=== PATIENT | female | born 1995 | race Caucasian/White ===

== ENCOUNTER 2018-12-14 11:45 | Inpatient (IN) | payer OTHER ==
[~2018-12-14] VITALS: Ht 152.4 cm; Wt 59.1 kg
[~2018-12-14 11:45] MED LIST: AMOX500C2 PO; IBUP-1542 PO
[2018-12-14] MEDS ORDERED: ONDANSETRON 4 MG INJ IV STA ×2 (13:04→17:43)
[2018-12-14] MEDS ORDERED: morphine 4 MG/ML VIAL IV STA ×3 (13:04→17:43)
--- NOTE | 2018-12-14 13:18 | ERD ---
ER Documentation Chief Complaint Chief Complaint Complains of abdominal pain sent from MD guido appendecitis HPI 23-year-old female with alcohol use presents to the ED complaining of right sided abdominal pain. Patient states that the abdominal pain began periumbilical yesterday, however, it was less intense and now remains in the right side of her abdomen Patient states that today her pain is 10 out of 10 in severity and nonradiating. She describes the pain as constant and sharp. She has not measured any fevers, however, she states that she has had some chills, night sweats, nausea, and several episodes of nonbilious nonbloody vomiting. Patient denies any dysuria, hematuria, pelvic pain, or flank pain. Patient states she is not currently taking any medications. She has no allergies to medication. She denies tobacco use any tobacco use or drug use. ROS All systems reviewed and are negative except as per history of present illness. Medications Home Meds Active Scripts Amoxicillin* (Amoxicillin*) 500 Mg Cap, 500 MG PO TID for 10 Days, CAP Prov:JEFF HEARD MD 05/05/15 Ibuprofen* (Motrin*) 600 Mg Tab, 600 MG PO Q6, #14 TAB Prov:JEFF HEARD MD 05/05/15 Allergies Allergies: Coded Allergies: No Known Allergy (Unverified , 12/14/18) PMhx/Soc History of Surgery: No Anesthesia Reaction: No Hx Neurological Disorder: No Hx Respiratory Disorders: No Hx Cardiac Disorders: No Hx Psychiatric Problems: No Hx Miscellaneous Medical Probl: No Hx Alcohol Use: Yes (DAILY) Hx Substance Use: Yes ("i smoke meth every day") Hx Tobacco Use: Yes (") Smoking Status: Never smoker FmHx Family History: No diabetes, No coronary disease Physical Exam Vitals Vital Signs Date Temp Pulse Resp B/P (MAP) Pulse Ox O2 O2 Flow FiO2 Time Delivery Rate 12/14/18 99.0 100 20 139/94 99 11:53 (109) Physical Exam Const: [id number], well-nourished. In no acute distress. Head: Atraumatic, normocephalic Eyes: Normal Conjunctiva without injection. No purulent discharge. ENT: Normal external ear, nose. Moist oropharynx without tonsillar exudates. Non-erythematous pharynx. Uvula midline. No drooling. No trismus. Neck: No cervical midline tenderness. Full range of motion. No meningismus. No cervical lymphadenopathy. No JVD. Resp: Clear to auscultation bilaterally. No wheezing, rhonchi, rales, or crackles. No accessory muscle use. No retractions. Cardio: Regular rate and rhythm. No murmurs, rubs or gallops. Abd: Soft, right upper and lower quadrant tenderness, non distended. Normal bowel sounds. No palpable masses. No rebound tenderness. No guarding. Negative McBurney's point. Negative psoas sign. Negative obturator sign. Skin: No petechiae or rashes Back: No midline tenderness. No CVA tenderness. Ext: No cyanosis, or edema. Neur: Awake and alert. Normal gait. Normal coordination. Psych: Normal Mood and Affect Result Diagram: 12/14/18 1323 12/14/18 1323 Results 24 hrs Laboratory Tests Test 12/14/18 13:23 12/14/18 13:29 White Blood Count 8.2 10^3/ul Red Blood Count 4.54 10^6/ul Hemoglobin 15.2 g/dl Hematocrit 44.1 % Mean Corpuscular Volume 97.1 fl Mean Corpuscular Hemoglobin 33.5 pg Mean Corpuscular Hemoglobin Concent 34.5 g/dl Red Cell Distribution Width 13.2 % Platelet Count 241 10^3/UL Mean Platelet Volume 10.4 fl Immature Granulocytes % 0.600 % Neutrophils % 79.4 % Lymphocytes % 10.6 % Monocytes % 8.9 % Eosinophils % 0.1 % Basophils % 0.4 % Nucleated Red Blood Cells % 0.0 /100WBC Immature Granulocytes # 0.050 10^3/ul Neutrophils # 6.5 10^3/ul Lymphocytes # 0.9 10^3/ul Monocytes # 0.7 10^3/ul Eosinophils # 0.0 10^3/ul Basophils # 0.0 10^3/ul Nucleated Red Blood Cells # 0.0 10^3/ul Urine Color MARILIA Urine Clarity SLIGHTLY CLOUDY Urine pH 5.[address] 1.027 Urine Ketones 2+ mg/dL Urine Nitrite NEGATIVE mg/dL Urine Bilirubin NEGATIVE mg/dL Urine Urobilinogen 1+ mg/dL Urine Leukocyte Esterase NEGATIVE Edu/ul Urine Microscopic RBC 0 /HPF Urine Microscopic WBC 1 /HPF Urine Squamous Epithelial Cells MODERATE /HPF Urine Bacteria FEW /HPF Urine Mucus MANY /HPF Urine Hemoglobin 1+ mg/dL Urine Glucose NEGATIVE mg/dL Urine Total Protein 2+ mg/dl Sodium Level 137 mmol/L Potassium Level 3.4 mmol/L Chloride Level 99 mmol/L Carbon Dioxide Level 19 mmol/L Anion Gap 19 Blood Urea Nitrogen 7 mg/dl Creatinine 0.56 mg/dl Est Glomerular Filtrat Rate mL/min > 60 mL/min Glucose Level 108 mg/dl Calcium Level 10.7 mg/dl Total Bilirubin 1.4 mg/dl Direct Bilirubin 0.00 mg/dl Indirect Bilirubin 1.4 mg/dl Aspartate Amino Transf (AST/SGOT) 249 IU/L Alanine Aminotransferase (ALT/SGPT) 111 IU/L Alkaline Phosphatase 125 IU/L Total Protein 9.1 g/dl Albumin 5.3 g/dl Globulin 3.80 g/dl Albumin/Globulin Ratio 1.39 Lipase 39393 U/L POC Beta HCG, Qualitative NEGATIVE Current Medications Medications Dose Sig/Joseph Start Time Status Last (Trade) Ordered Route PRN Stop Time Admin Dose Reason Admin Morphine 4 mg ONCE STAT 12/14/18 DC 12/14/18 Sulfate IV 13:04 13:33 (morphine) 12/14/18 13:06 Ondansetron 4 mg ONCE STAT 12/14/18 DC 12/14/18 HCl (Zofran IV 13:04 13:32 Inj) 12/14/18 13:06 Sodium 1,000 ml @ Q1H ONCE 12/14/18 DC 12/14/18 Chloride 1,000 mls/hr IV 13:30 13:32 12/14/18 14:29 Procedures/MDM 23-year-old female patient with a past medical history of EtOH use presents to the ED complaining of right-sided abdominal pain. Patient is afebrile and nontoxic-appearing. Patient was further worked up with CBC, CMP, lipase, UA. Due to patient's severe abdominal pain, a CT of the abdomen and pelvis was ordered to further evaluate patient. Patient's pain and symptoms have improved after treatment with 4 mg IV morphine, 4 mg IV Zofran. CBC: No leukocytosis. No e/o of systemic infection. No e/o anemia. CMP: No e/o diabetic ketoacidosis, transaminitis noted. Elevated indirect bilirubin likely secondary to hemolysis. Metabolic acidosis is noted. Lipase 16061 Urine: No leukocyte esterase, no nitrites, no hematuria. Urine : Negative IMPRESSION: Findings are consistent with the presence of acute pancreatitis. There is no CT evidence for hemorrhage or fluid collection. No evidence of bowel obstruction or appendicitis. Hepatomegaly and fatty liver. Patient has pancreatitis likely secondary to EtOH. Lavatory findings are consistent with pancreatitis as well as CT findings. Gallbladder ultrasound was ordered to further evaluate patient. This discussed with my supervising physician, Dr. Bass who agreed with the patient plan. Departure Diagnosis: Primary Impression: Pancreatitis Chronicity: acute Pancreatitis type: unspecified pancreatitis type Acute pancreatitis complication: unspecified Qualified Codes: K85.90 - Acute pancreatitis without necrosis or infection, unspecified Condition: Serious DASHAWN DEVLIN PA-C Dec 14, 2018 13:18
[2018-12-14] MEDS ORDERED: SOD CHLORIDE 0.9% 1,000 ML IV ONE ×2 (13:30→18:00)
--- NOTE | 2018-12-14 16:06 | QN ---
Documentation Comment Observation Note Subjective: This patient was seen by myself in conjunction with the PA. Briefly, this is a 23-year-old female with a past history of significant alcohol abuse who is presenting with abdominal pain, nausea and vomiting. Family history: As indicated on the initial history and physical of this ER visit Objective: Vital signs reviewed Const: No apparent distress, well-developed, well-nourished Head: Normocephalic, Atraumatic Eyes: Normal Conjunctiva. ENT: Normal External Ears, Nose and Mouth. Neck: No meningismus. Resp: Symmetric chest wall weiss, no audible wheezes Cardio: Normal rate Abd: General abdominal tenderness, worse in the epigastrium. Soft, nondistended. Skin: No petechiae or rashes Ext: No cyanosis, or edema Neur: Awake and alert, oriented 4. No facial droop. Normal strength and sensation. Psych: Normal mood and affect MDM The patient's presentation warrants further investigation. Previous medical records, if available, were reviewed. LABS The patient's laboratory testing was obtained and reviewed. No emergent treatment was required unless described below. CBC: No E/o systemic infection or severe anemia or thrombocytopenia Chemistry: No E/o severe acidosis or alkalosis or renal failure or liver disease or diabetic ketoacidosis. Mild hypokalemia, nonemergent. Anion gap metabolic acidosis though without hypoglycemia, low suspicion for DKA. Transaminitis and the ratio concerning for alcoholic liver disease. Elevated i ndirect hyperbilirubinemia, indicative of mild hemolysis. Decreased clinical suspicion for obstructive cholestatic disease. Lipase: E/o pancreatitis LDH: Pending CRP: Pending IMAGING Imaging and Radiology interpretation reviewed. CT Abd/Pelvis FINDINGS: The lung bases are clear. There are moderate to prominent inflammatory changes of the pancreatic parenchyma with mild to moderate peripancreatic fluid along with mild fluid tracking in the retroperitoneum inferiorly. There is mild ascites. There is no evidence of an organized fluid collection. Evaluation for necrosis cannot be assessed given the lack of IV contrast. There is no CT evidence for hemorrhage. There is mild prominence of the peripancreatic lymph nodes. There is no free air. There is hepatomegaly and fatty infiltration of the liver with no focal lesion or biliary ductal dilatation. The gallbladder is unremarkable without inflammation. The spleen is unremarkable without mass. The adrenal glands are within normal limits without mass. The kidneys are symmetric bilaterally without hydronephrosis or perinephric stranding. There is no bowel obstruction or focal bowel inflammation. The appendix is unremarkable. There is no free air. There are no enlarged lymph nodes. The aorta is unremarkable and there is no acute osseous abnormality. The uterus and adnexal structures within normal limits. IMPRESSION: Findings are consistent with the presence of acute pancreatitis. There is no CT evidence for hemorrhage or fluid collection. No evidence of laure wel obstruction or appendicitis. Hepatomegaly and fatty liver. Electronically viewed and signed by .Jillian Finn MD, on 12/14/2018 14:49 US GB FINDINGS: The liver is normal in size and diffusely increased echogenicity and coarsened echotexture without focal mass or intrahepatic biliary dilatation. The gallbladder is normal. There is no pericholecystic fluid or gallbladder wall thickening or gallstones. No intra or extrahepatic biliary dilatation is seen. The common bile duct measures 3 mm in maximal dimension. The visualized portions of the pancreas are unremarkable with obscuration of the tail of the pancreas. No free fluid is identified. The right kidney measures 9.9 cm in length. There is normal echogenicity within the right kidney. There is no perinephric fluid collection. No hydronephrosis, mass, or calculus is seen. IMPRESSION: Diffusely increased hepatic echogenicity and coarsened echotexture, compatible with steatosis with underlying chronic hepatic parenchymal disease. Otherwise, unremarkable exam. Electronically viewed and signed by .Harmeet Meza MD, MD on 12/14/2018 15:35 TREATMENT/DISPOSITION The patient symptoms are most consistent with pancreatitis, likely related to alcohol abuse. The patient was treated with IV fluids, morphine and Zofran in the emergency department. ADMISSION At this time, I feel that the patient requires admission for further evaluation and management. The patient will be admitted to Panel in accordance with the patient's insurance. Please see PA note for further detail. IMPRESSIONS Primary: Pancreatitis Secodnary: Alcoholic liver disease, transaminitis, indirect hyperbilirubinemia, hypokalemia, anion gap metabolic acidosis, abdominal pain, nausea vomiting Disclaimer: Inadvertent spelling and grammatical errors are likely due to EHR/dictation software use and do not reflect on the overall quality of patient care. Note that the electronic time recorded on this note does not necessarily reflect the actual time of the patient encounter. SOPHY LEVIN MD Dec 14, 2018 16:06
[2018-12-14] MEDS ORDERED: ONDANSETRON 4 MG INJ IV PRN (18:00)
[2018-12-14] MEDS ORDERED: ACETAMINOPHEN 325 MG TAB PO PRN (18:00)
--- NOTE | 2018-12-14 18:45 | HP ---
Date/Time of Note Date/Time of Note DATE: 12/14/18 TIME: 18:40 Assessment/Plan VTE Prophylaxis SCD applied (from Ns): Yes Pharmacological prophylaxis: NA/contraindicated Pharm contraindication: liver dx Lines/Catheters IV [facility]from [facility] Saline Lock Assessment/Plan Hospital Course 1. Acute alcohol related pancreatitis N.p.o. IV fluids 2. 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 Alcohol abuse Alcohol cessation advised 4. Hypokalemia Replete Prophylaxis: SCDs Result Diagram: 12/14/18 1323 12/14/18 1323 Results 24hrs Laboratory Tests Test 12/14/18 13:23 12/14/18 13:29 White Blood Count 8.2 Red Blood Count 4.54 Hemoglobin 15.2 Hematocrit 44.1 Mean Corpuscular Volume 97.1 Mean Corpuscular Hemoglobin 33.5 H Mean Corpuscular Hemoglobin Concent 34.5 Red Cell Distribution Width 13.2 Platelet Count 241 Mean Platelet Volume 10.4 Immature Granulocytes % 0.600 H Neutrophils % 79.4 H Lymphocytes % 10.6 L Monocytes % 8.9 Eosinophils % 0.1 Basophils % 0.4 Nucleated Red Blood Cells % 0.0 Immature Granulocytes # 0.050 H Neutrophils # 6.5 Lymphocytes # 0.9 Monocytes # 0.7 Eosinophils # 0.0 Basophils # 0.0 Nucleated Red Blood Cells # 0.0 Urine Color MARILIA Urine Clarity SLIGHTLY CLOUDY A Urine pH 5.0 Urine Specific [place] 1.027 Urine Ketones 2+ H Urine Nitrite NEGATIVE Urine Bilirubin NEGATIVE Urine Urobilinogen 1+ H Urine Leukocyte Esterase NEGATIVE Urine Microscopic RBC 0 Urine Microscopic WBC 1 Urine Squamous Epithelial Cells MODERATE Urine Bacteria FEW A Urine Mucus MANY A Urine Hemoglobin 1+ H Urine Glucose NEGATIVE Urine Total Protein 2+ H Sodium Level 137 Potassium Level 3.4 L Chloride Level 99 Carbon Dioxide Level 19 L Anion Gap 19 H Blood Urea Nitrogen 7 Creatinine 0.56 Est Glomerular Filtrat Rate mL/min > 60 Glucose Level 108 Calcium Level 10.7 H Total Bilirubin 1.4 H Direct Bilirubin 0.00 Indirect Bilirubin 1.4 H Aspartate Amino Transf (AST/SGOT) 249 H Alanine Aminotransferase (ALT/SGPT) 111 H Alkaline Phosphatase 125 H Total Protein 9.1 H Albumin 5.3 H Globulin 3.80 H Albumin/Globulin Ratio 1.39 Lipase 39951 H POC Beta HCG, Qualitative NEGATIVE HPI/ROS Admit Date/Time Admit Date/Time December 14, 2018 Hx of Present Illness Patient is a 23-year-old female with no prior medical history, patient presents with 2 months of intermittent abdominal pain that became acutely worse over the past 2 days. Pain is associated with nausea and vomiting. In ER patient was found to have pink otitis and elevated LFTs. Patient has no prior history of pink otitis or cholelithiasis, CT abdomen did show acute pancreatitis and ultrasound abdomen showed no evidence of cholelithiasis but did show steatosis of the liver with underlying chronic hepatic parenchymal disease. Patient is a heavy drinker, last drink was 3 days ago. Patient has no other complaints at this time. ROS Constitutional: no complaints, improved Eyes: no complaints ENT: no complaints Respiratory: no complaints Cardiovascular: no complaints Gastrointestinal: pain, nausea, vomiting Genitourinary: no complaints Musculoskeletal: no complaints Skin: no complaints Neurologic: no complaints Endocrine: no complaints Lymphatic: no complaints Psychological: no complaints, nl mood/affect Immunologic: no complaints PMH/Family/Social Past Medical History Medical History: no pertinent history Medications Current Medications Ondansetron HCl (Zofran Inj) 4 mg BRIDGE ORDER PRN IV NAUSEA/VOMITING; Start 12/14/18 at 18:00; Stop 12/15/18 at 17:59 Acetaminophen (Tylenol Tab) 650 mg ER BRIDGE PRN PO .MILD PAIN 1-3 OR TEMP; Start 12/14/18 at 18:00; Stop 12/15/18 at 17:59 Sodium Chloride 1,000 ml @ 1,000 mls/hr Q1H ONCE IV ; Start 12/14/18 at 18:00; Stop 12/14/18 at 18:59 Coded Allergies: No Known Allergy (Unverified , 12/14/18) Past Surgical History Past Surgical Hx: no surgical history Family History Significant Family History: no pertinent family hx Social History Alcohol Use: heavy Smoking Status: Former smoker Drug Use: none Exam/Review of Systems Vital Signs Vitals Vital Signs Date Temp Pulse Resp B/P (MAP) Pulse Ox O2 O2 Flow FiO2 Time Delivery Rate 12/14/18 99.0 100 20 139/94 99 11:53 (109) Exam Constitutional: alert, oriented Respiratory: clear to auscultation Cardiovascular: regular rate and rhythm Gastrointestinal: soft, tender; No distended Musculoskeletal: nl extremities to inspection CHARLENE PRITCHETT Dec 14, 2018 18:45
[2018-12-14] MEDS ORDERED: NACL 0.9% 3 ML SYG IV SCH (19:00)
[2018-12-14] MEDS ORDERED: morphine 2 MG INJ IV PRN (19:00)
[2018-12-14 19:24] VITALS: BP 141/93; PULSE 92; RESP 18
[2018-12-14 19:41] VITALS: Ht 152.4 cm; Wt 59.1 kg
[2018-12-14 20:00] VITALS: BP 137/93; PULSE 98; RESP 18
[2018-12-14] MEDS: D5W-0.45 NACL + KCL 20 MEQ 1,000 ML IV SCH (20:05)
[2018-12-14] MEDS: KETOROLAC 30 MG INJ IV PRN (22:17)
[2018-12-15] MEDS: morphine 4 MG/ML VIAL IV PRN ×5 (00:57→22:55)
[2018-12-15 02:00] VITALS: BP 113/82; PULSE 104; RESP 18
[2018-12-15] MEDS: D5W-0.45 NACL + KCL 20 MEQ 1,000 ML IV SCH ×4 (02:45→22:55)
[2018-12-15] MEDS: ONDANSETRON 4 MG INJ IV PRN ×3 (04:51→20:13)
[2018-12-15] MEDS: KETOROLAC 30 MG INJ IV PRN ×3 (06:36→20:13)
[2018-12-15 07:25] VITALS: BP 114/81; PULSE 109; RESP 18
--- NOTE | 2018-12-15 11:55 | PN ---
Date/Time of Note Date/Time of Note DATE: 12/15/18 TIME: 11:54 Assessment/Plan VTE Prophylaxis Risk score (from [facility])>0 risk: 1 SCD applied (from [facility]): Yes Pharmacological prophylaxis: NA/contraindicated Pharm contraindication: low risk/ambulating Lines/Catheters IV C[facility]ter Type [facility]from [facility]): Peripheral IV Assessment/Plan Hospital Course 1. Acute alcohol related pancreatitis N.p.o. IV fluids Lipase is severely elevated, monitor 2. Alcohol hepatitis-improving Viral hepatitis panel was negative Monitor GI consultation obtained 3. Alcohol abuse Alcohol cessation advised 4. Hypokalemia Repleted Prophylaxis: SCDs DC planning: Continue n.p.o. status and IV fluids, anticipate DC home in 2-3 days Result Diagram: 12/15/18 0550 12/15/18 0550 Results 24hrs Laboratory Tests Test 12/14/18 13:23 12/14/18 13:29 12/15/18 05:50 White Blood Count 8.2 8.2 Red Blood Count 4.54 4.61 Hemoglobin 15.2 15.3 Hematocrit 44.1 45.8 Mean Corpuscular Volume 97.1 99.3 Mean Corpuscular Hemoglobin 33.5 H 33.2 H Mean Corpuscular 34.5 33.4 Hemoglobin Concent Red Cell Distribution Width 13.2 13.5 Platelet Count 241 189 # Mean Platelet Volume 10.4 10.6 H Immature Granulocytes % 0.600 H 0.600 H Neutrophils % 79.4 H 84.0 H Lymphocytes % 10.6 L 6.7 L Monocytes % 8.9 8.5 Eosinophils % 0.1 0.1 Basophils % 0.4 0.1 Nucleated Red Blood Cells % 0.0 0.0 Immature Granulocytes # 0.050 H 0.050 H Neutrophils # 6.5 6.9 Lymphocytes # 0.9 0.6 L Monocytes # 0.7 0.7 Eosinophils # 0.0 0.0 Basophils # 0.0 0.0 Nucleated Red Blood Cells # 0.0 0.0 Urine Color MARILIA Urine Clarity SLIGHTLY CLOUDY A Urine pH 5.0 Urine Specific [place] 1.027 Urine Ketones 2+ H Urine Nitrite NEGATIVE Urine Bilirubin NEGATIVE Urine Urobilinogen 1+ H Urine Leukocyte Esterase NEGATIVE Urine Microscopic RBC 0 Urine Microscopic WBC 1 Urine Squamous MODERATE Epithelial Cells Urine Bacteria FEW A Urine Mucus MANY A Urine Hemoglobin 1+ H Urine Glucose NEGATIVE Urine Total Protein 2+ H Sodium Level 137 134 L Potassium Level 3.4 L 3.6 Chloride Level 99 101 Carbon Dioxide Level 19 L 20 L Anion Gap 19 H 13 Blood Urea Nitrogen 7 3 L Creatinine 0.56 0.44 Est Glomerular Filtrat > 60 > 60 Rate mL/min Glucose Level 108 117 Calcium Level 10.7 H 9.4 Total Bilirubin 1.4 H 1.0 Direct Bilirubin 0.00 0.00 Indirect Bilirubin 1.4 H 1.0 Aspartate Amino 249 H 111 H Transf (AST/SGOT) Alanine 111 H 66 Aminotransferase (ALT/SGPT) Alkaline Phosphatase 125 H 79 Lactate Dehydrogenase 798 H C-Reactive Protein 0.7 Total Protein 9.1 H 6.8 # Albumin 5.3 H 4.0 # Globulin 3.80 H 2.80 Albumin/Globulin Ratio 1.39 1.42 Lipase 36858 H 58652 H POC Beta HCG, Qualitative NEGATIVE Prothrombin Time 14.5 Prothrombin Time Ratio 1.1 INR International 1.12 Normalized Ratio Activated Partial Thromboplast 24.4 Time Hemoglobin A1c 4.7 Phosphorus Level 3.7 Magnesium Level 1.7 Triglycerides Level 79 Cholesterol Level 165 LDL Cholesterol, Calculated 99 HDL Cholesterol 50 Cholesterol/HDL Ratio 3.3 Hepatitis B Surface Antigen NEGATIVE Hepatitis B Core NEGATIVE Total Antibody Hepatitis C Antibody NEGATIVE Subjective 24 Hr Interval Summary Gastrointestinal: pain Exam/Review of Systems Exam Vitals Vital Signs Date Temp Pulse Resp B/P (MAP) Pulse Ox O2 O2 Flow FiO2 Time Delivery Rate 12/15/18 98.1 109 18 114/81 96 Room Air 07:25 (92) Intake and Output 12/14/18 12/14/18 12/15/18 1515:00 23:00 07:00 IntakeIntake Total 1000 ml 1000 ml 1000 ml BalanceBalance 1000 ml 1000 ml 1000 ml Constitutional: alert, oriented Respiratory: clear to auscultation Cardiovascular: regular rate and rhythm Gastrointestinal: soft; No distended Musculoskeletal: nl extremities to inspection Results Results 24hrs Laboratory Tests Test 12/14/18 13:23 12/14/18 13:29 12/15/18 05:50 White Blood Count 8.2 8.2 Red Blood Count 4.54 4.61 Hemoglobin 15.2 15.3 Hematocrit 44.1 45.8 Mean Corpuscular Volume 97.1 99.3 Mean Corpuscular Hemoglobin 33.5 H 33.2 H Mean Corpuscular 34.5 33.4 Hemoglobin Concent Red Cell Distribution Width 13.2 13.5 Platelet Count 241 189 # Mean Platelet Volume 10.4 10.6 H Immature Granulocytes % 0.600 H 0.600 H Neutrophils % 79.4 H 84.0 H Lymphocytes % 10.6 L 6.7 L Monocytes % 8.9 8.5 Eosinophils % 0.1 0.1 Basophils % 0.4 0.1 Nucleated Red Blood Cells % 0.0 0.0 Immature Granulocytes # 0.050 H 0.050 H Neutrophils # 6.5 6.9 Lymphocytes # 0.9 0.6 L Monocytes # 0.7 0.7 Eosinophils # 0.0 0.0 Basophils # 0.0 0.0 Nucleated Red Blood Cells # 0.0 0.0 Urine Color MARILIA Urine Clarity SLIGHTLY CLOUDY A Urine pH 5.0 Urine Specific [place] 1.027 Urine Ketones 2+ H Urine Nitrite NEGATIVE Urine Bilirubin NEGATIVE Urine Urobilinogen 1+ H Urine Leukocyte Esterase NEGATIVE Urine Microscopic RBC 0 Urine Microscopic WBC 1 Urine Squamous MODERATE Epithelial Cells Urine Bacteria FEW A Urine Mucus MANY A Urine Hemoglobin 1+ H Urine Glucose NEGATIVE Urine Total Protein 2+ H Sodium Level 137 134 L Potassium Level 3.4 L 3.6 Chloride Level 99 101 Carbon Dioxide Level 19 L 20 L Anion Gap 19 H 13 Blood Urea Nitrogen 7 3 L Creatinine 0.56 0.44 Est Glomerular Filtrat > 60 > 60 Rate mL/min Glucose Level 108 117 Calcium Level 10.7 H 9.4 Total Bilirubin 1.4 H 1.0 Direct Bilirubin 0.00 0.00 Indirect Bilirubin 1.4 H 1.0 Aspartate Amino 249 H 111 H Transf (AST/SGOT) Alanine 111 H 66 Aminotransferase (ALT/SGPT) Alkaline Phosphatase 125 H 79 Lactate Dehydrogenase 798 H C-Reactive Protein 0.7 Total Protein 9.1 H 6.8 # Albumin 5.3 H 4.0 # Globulin 3.80 H 2.80 Albumin/Globulin Ratio 1.39 1.42 Lipase 80380 H 87500 H POC Beta HCG, Qualitative NEGATIVE Prothrombin Time 14.5 Prothrombin Time Ratio 1.1 INR International 1.12 Normalized Ratio Activated Partial Thromboplast 24.4 Time Hemoglobin A1c 4.7 Phosphorus Level 3.7 Magnesium Level 1.7 Triglycerides Level 79 Cholesterol Level 165 LDL Cholesterol, Calculated 99 HDL Cholesterol 50 Cholesterol/HDL Ratio 3.3 Hepatitis B Surface Antigen NEGATIVE Hepatitis B Core NEGATIVE Total Antibody Hepatitis C Antibody NEGATIVE Medications Medication Current Medications Ondansetron HCl (Zofran Inj) 4 mg BRIDGE ORDER PRN IV NAUSEA/VOMITING; Start 12/14/18 at 18:00; Stop 12/15/18 at 17:59 Acetaminophen (Tylenol Tab) 650 mg ER BRIDGE PRN PO .MILD PAIN 1-3 OR TEMP; Start 12/14/18 at 18:00; Stop 12/15/18 at 17:59 Potassium Chloride/Dextrose/ Sod Cl 1,000 ml @ 125 mls/hr Q8H IV Last administered on 12/15/18 06:32; Admin Dose 125 MLS/HR; Start 12/14/18 at 18:45 IV Flush (NS 3 ml) 3 ml PER PROTOCOL IV ; Start 12/14/18 at 19:00 Ondansetron HCl (Zofran Inj) 4 mg Q6H PRN IV NAUSEA/VOMITING Last administered on 12/15/18at 11:46; Admin Dose 4 MG; Start 12/14/18 at 19:00 Morphine Sulfate (morphine) 4 mg Q4H PRN IV .SEVERE PAIN 7-10 Last administered on 12/15/18 09:34; Admin Dose 4 MG; Start 12/14/18 at 22:00 Ketorolac Tromethamine (Toradol) 30 mg Q6H PRN IV PAIN LEVEL 1-3 Last administe red on 12/15/18at 06:36; Admin Dose 30 MG; Start 12/14/18 at 22:00; Stop 12/15/18 at 22:00 CHARLENE PRITCHETT Dec 15, 2018 11:55
[2018-12-15 14:14] VITALS: BP 114/81; PULSE 97; RESP 16
[2018-12-15 20:10] VITALS: BP 125/89; PULSE 114; RESP 18
[2018-12-16 02:10] VITALS: BP 106/66; PULSE 108; RESP 18
[2018-12-16] MEDS: morphine 4 MG/ML VIAL IV PRN ×5 (03:38→21:00)
[2018-12-16] MEDS: D5W-0.45 NACL + KCL 20 MEQ 1,000 ML IV SCH ×2 (06:58→16:15)
[2018-12-16 07:20] VITALS: BP 105/61; PULSE 89; RESP 16
--- NOTE | 2018-12-16 11:29 | PN ---
Date/Time of Note Date/Time of Note DATE: 12/16/18 TIME: 11:28 Assessment/Plan VTE Prophylaxis Risk score (from [facility])>0 risk: 1 SCD applied (from [facility]): Yes Pharmacological prophylaxis: NA/contraindicated Pharm contraindication: low risk/ambulating Lines/Catheters IV C[facility]ter Type (from [facility]): Peripheral IV Assessment/Plan Hospital Course 1. Acute alcohol related pancreatitis N.p.o. IV fluids Lipase is severely elevated but improving, monitor 2. Alcohol hepatitis-improving Viral hepatitis panel was negative Monitor 3. Alcohol abuse Alcohol cessation advised 4. Hypokalemia Repleted Prophylaxis: SCDs DC planning: Continue n.p.o. status and IV fluids, anticipate initiation of clears tomorrow Result Diagram: 12/16/18 0459 12/16/189 Results 24hrs Laboratory Tests Test 12/16/18 04:59 White Blood Count 7.2 Red Blood Count 4.10 L Hemoglobin 14.0 Hematocrit 40.7 Mean Corpuscular Volume 99.3 Mean Corpuscular Hemoglobin 34.1 H Mean Corpuscular Hemoglobin Concent 34.4 Red Cell Distribution Width 13.2 Platelet Count 159 Mean Platelet Volume 10.9 H Immature Granulocytes % 0.600 H Neutrophils % 75.1 Lymphocytes % 10.7 L Monocytes % 12.3 H Eosinophils % 1.0 Basophils % 0.3 Nucleated Red Blood Cells % 0.0 Immature Granulocytes # 0.040 H Neutrophils # 5.4 Lymphocytes # 0.8 Monocytes # 0.9 Eosinophils # 0.1 Basophils # 0.0 Nucleated Red Blood Cells # 0.0 Sodium Level 135 Potassium Level 3.5 Chloride Level 104 Carbon Dioxide Level 24 Anion Gap 7 Blood Urea Nitrogen 2 L Creatinine 0.50 Est Glomerular Filtrat Rate mL/min > 60 Glucose Level 116 Calcium Level 8.9 Phosphorus Level 3.2 Magnesium Level 1.8 Total Bilirubin 0.9 Direct Bilirubin 0.00 Indirect Bilirubin 0.9 Aspartate Amino Transf (AST/SGOT) 96 H Alanine Aminotransferase (ALT/SGPT) 49 Alkaline Phosphatase 73 Total Protein 6.1 Albumin 3.2 L Globulin 2.90 Albumin/Globulin Ratio 1.10 Lipase 24485 H Subjective 24 Hr Interval Summary Gastrointestinal: pain Exam/Review of Systems Exam Vitals Vital Signs Date Temp Pulse Resp B/P (MAP) Pulse Ox O2 O2 Flow FiO2 Time Delivery Rate 12/16/18 98.2 89 16 105/61 100 Room Air 07:20 (76) Intake and Output 12/15/18 12/15/18 12/16/18 1515:00 23:00 07:00 IntakeIntake Total 1000 ml 375 ml 1000 ml BalanceBalance 1000 ml 375 ml 1000 ml Constitutional: alert, oriented Respiratory: clear to auscultation Cardiovascular: regular rate and rhythm Gastrointestinal: soft, tender; No distended Musculoskeletal: nl extremities to inspection Results Results 24hrs Laboratory Tests Test 12/16/18 04:59 White Blood Count 7.2 Red Blood Count 4.10 L Hemoglobin 14.0 Hematocrit 40.7 Mean Corpuscular Volume 99.3 Mean Corpuscular Hemoglobin 34.1 H Mean Corpuscular Hemoglobin Concent 34.4 Red Cell Distribution Width 13.2 Platelet Count 159 Mean Platelet Volume 10.9 H Immature Granulocytes % 0.600 H Neutrophils % 75.1 Lymphocytes % 10.7 L Monocytes % 12.3 H Eosinophils % 1.0 Basophils % 0.3 Nucleated Red Blood Cells % 0.0 Immature Granulocytes # 0.040 H Neutrophils # 5.4 Lymphocytes # 0.8 Monocytes # 0.9 Eosinophils # 0.1 Basophils # 0.0 Nucleated Red Blood Cells # 0.0 Sodium Level 135 Potassium Level 3.5 Chloride Level 104 Carbon Dioxide Level 24 Anion Gap 7 Blood Urea Nitrogen 2 L Creatinine 0.50 Est Glomerular Filtrat Rate mL/min > 60 Glucose Level 116 Calcium Level 8.9 Phosphorus Level 3.2 Magnesium Level 1.8 Total Bilirubin 0.9 Direct Bilirubin 0.00 Indirect Bilirubin 0.9 Aspartate Amino Transf (AST/SGOT) 96 H Alanine Aminotransferase (ALT/SGPT) 49 Alkaline Phosphatase 73 Total Protein 6.1 Albumin 3.2 L Globulin 2.90 Albumin/Globulin Ratio 1.10 Lipase 84923 H Medications Medication Current Medications Potassium Chloride/Dextrose/ Sod Cl 1,000 ml @ 125 mls/hr Q8H IV Last admin istered on 12/16/18at 06:58; Admin Dose 125 MLS/HR; Start 12/14/18 at 18:45 IV Flush (NS 3 ml) 3 ml PER PROTOCOL IV ; Start 12/14/18 at 19:00 Ondansetron HCl (Zofran Inj) 4 mg Q6H PRN IV NAUSEA/VOMITING Last administered on 12/15/18at 20:13; Admin Dose 4 MG; Start 12/14/18 at 19:00 Morphine Sulfate (morphine) 4 mg Q4H PRN IV .SEVERE PAIN 7-10 Last administered on 12/16/18at 08:00; Admin Dose 4 MG; Start 12/14/18 at 22:00 CHARLENE PRITCHETT Dec 16, 2018 11:29
[2018-12-16 14:13] VITALS: BP 119/77; PULSE 107; RESP 19
[2018-12-16 20:10] VITALS: BP 108/66; PULSE 75; RESP 18
[2018-12-17] MEDS: D5W-0.45 NACL + KCL 20 MEQ 1,000 ML IV SCH ×3 (00:52→17:37)
[2018-12-17] MEDS: morphine 4 MG/ML VIAL IV PRN ×6 (00:55→23:13)
[2018-12-17 02:05] VITALS: BP 108/60; PULSE 93; RESP 18
[2018-12-17 08:08] VITALS: BP 104/56; PULSE 90; RESP 18
[2018-12-17 13:50] VITALS: BP 100/59; PULSE 86; RESP 18
--- NOTE | 2018-12-17 18:57 | PN ---
Date/Time of Note Date/Time of Note DATE: 12/17/18 TIME: 18:55 Assessment/Plan VTE Prophylaxis Risk score (from [facility])>0 risk: 0 SCD applied (from [facility]): Yes Pharmacological prophylaxis: NA/contraindicated Pharm contraindication: low risk/ambulating Lines/Catheters IV Catheter Type (from [facility]): Peripheral IV Assessment/Plan Hospital Course 1. Acute alcohol related pancreatitis Lipase is trending down Patient is tolerating a clear liquid diet, advance to soft tomorrow DC IV fluids Pain control 2. Alcohol hepatitis-improving Viral hepatitis panel was negative Monitor 3. Alcohol abuse Alcohol cessation advised 4. Hypokalemia Repleted Prophylaxis: SCDs DC planning: Patient tolerating clears, advance to soft tomorrow and if tolerates consider Discharging Result Diagram: 12/17/1863012/17/1831 Results 24hrs Laboratory Tests Test 12/17/18 06:31 White Blood Count 5.5 # Red Blood Count 3.42 L Hemoglobin 11.8 L Hematocrit 34.3 L Mean Corpuscular Volume 100.3 Mean Corpuscular Hemoglobin 34.5 H Mean Corpuscular Hemoglobin Concent 34.4 Red Cell Distribution Width 13.2 Platelet Count 158 Mean Platelet Volume 10.8 H Immature Granulocytes % 0.400 Neutrophils % 67.5 Lymphocytes % 15.8 Monocytes % 14.1 H Eosinophils % 1.8 Basophils % 0.4 Nucleated Red Blood Cells % 0.0 Immature Granulocytes # 0.020 Neutrophils # 3.7 Lymphocytes # 0.9 Monocytes # 0.8 Eosinophils # 0.1 Basophils # 0.0 Nucleated Red Blood Cells # 0.0 Sodium Level 135 Potassium Level 3.6 Chloride Level 104 Carbon Dioxide Level 24 Anion Gap 7 Blood Urea Nitrogen < 2 L Creatinine 0.41 L Est Glomerular Filtrat Rate mL/min > 60 Glucose Level 91 Calcium Level 8.6 Total Bilirubin 0.8 Direct Bilirubin 0.00 Indirect Bilirubin 0.8 Aspartate Amino Transf (AST/SGOT) 76 H Alanine Aminotransferase (ALT/SGPT) 38 Alkaline Phosphatase 63 Total Protein 5.4 L Albumin 2.8 L Globulin 2.60 Albumin/Globulin Ratio 1.07 Lipase 6253 H Subjective 24 Hr Interval Summary Constitutional: no complaints Exam/Review of Systems Exam Vitals Vital Signs Date Temp Pulse Resp B/P (MAP) Pulse Ox O2 O2 Flow FiO2 Time Delivery Rate 12/17/18 98.4 86 18 100/59 96 13:50 (73) 12/16/18 Room Air 14:13 Nasal Cannula Intake and Output 12/16/18 12/16/18 12/17/18 1515:00 23:00 07:00 IntakeIntake Total 1125 ml 2375 ml BalanceBalance 1125 ml 2375 ml Constitutional: alert, oriented Respiratory: clear to auscultation Cardiovascular: regular rate and rhythm Gastrointestinal: soft; No distended Musculoskeletal: nl extremities to inspection Results Results 24hrs Laboratory Tests Test 12/17/18 06:31 White Blood Count 5.5 # Red Blood Count 3.42 L Hemoglobin 11.8 L Hematocrit 34.3 L Mean Corpuscular Volume 100.3 Mean Corpuscular Hemoglobin 34.5 H Mean Corpuscular Hemoglobin Concent 34.4 Red Cell Distribution Width 13.2 Platelet Count 158 Mean Platelet Volume 10.8 H Immature Granulocytes % 0.400 Neutrophils % 67.5 Lymphocytes % 15.8 Monocytes % 14.1 H Eosinophils % 1.8 Basophils % 0.4 Nucleated Red Blood Cells % 0.0 Immature Granulocytes # 0.020 Neutrophils # 3.7 Lymphocytes # 0.9 Monocytes # 0.8 Eosinophils # 0.1 Basophils # 0.0 Nucleated Red Blood Cells # 0.0 Sodium Level 135 Potassium Level 3.6 Chloride Level 104 Carbon Dioxide Level 24 Anion Gap 7 Blood Urea Nitrogen < 2 L Creatinine 0.41 L Est Glomerular Filtrat Rate mL/min > 60 Glucose Level 91 Calcium Level 8.6 Total Bilirubin 0.8 Direct Bilirubin 0.00 Indirect Bilirubin 0.8 Aspartate Amino Transf (AST/SGOT) 76 H Alanine Aminotransferase (ALT/SGPT) 38 Alkaline Phosphatase 63 Total Protein 5.4 L Albumin 2.8 L Globulin 2.60 Albumin/Globulin Ratio 1.07 Lipase 6253 H Medications Medication Current Medications Potassium Chloride/Dextrose/ Sod Cl 1,000 ml @ 125 mls/hr Q8H IV Last adm inistered on 12/17/18at 17:37; Admin Dose 125 MLS/HR; Start 12/14/18 at 18:45 IV Flush (NS 3 ml) 3 ml PER PROTOCOL IV ; Start 12/14/18 at 19:00 Ondansetron HCl (Zofran Inj) 4 mg Q6H PRN IV NAUSEA/VOMITING Last administered on 12/15/18at 20:13; Admin Dose 4 MG; Start 12/14/18 at 19:00 Morphine Sulfate (morphine) 4 mg Q4H PRN IV .SEVERE PAIN 7-10 Last administered on 12/17/18at 18:50; Admin Dose 4 MG; Start 12/14/18 at 22:00 CHARLENE PRITCHETT Dec 17, 2018 18:57
[2018-12-17 20:05] VITALS: BP 125/69; PULSE 90; RESP 18
[2018-12-18 02:05] VITALS: BP 99/59; PULSE 84; RESP 18
[2018-12-18] MEDS: morphine 4 MG/ML VIAL IV PRN (05:58)
[2018-12-18 08:01] VITALS: BP 103/67; PULSE 81; RESP 17
[2018-12-18] MEDS ORDERED: HYDROCODONE/APAP (5/325) TAB PO PRN (10:00)
--- NOTE | 2018-12-18 15:35 | DS ---
Date/Time of Note Date/Time of Note DATE: 12/18/18 TIME: 15:35 Discharge Summary Admission/Discharge Info Admit Date/Time Dec 14, 2018 at 17:44 Discharge Date/Time Dec 18, 2018 at 14:36 Discharge Diagnosis Pancreatitis Patient Condition: Stable Hospital Course Fede rosa to have acute pancreatitis on imaging Etiology was secondary to alcohol use She was treated with IV fluids and analgesics Symptoms resolved and she was discharged home Alcohol cessation counseling was provided Home Meds Discontinued Scripts Amoxicillin* (Amoxicillin*) 500 Mg Cap, 500 MG PO TID for 10 Days, CAP Prov:JEFF HEARD MD 05/05/15 Ibuprofen* (Motrin*) 600 Mg Tab, 600 MG PO Q6, #14 TAB Prov:JEFF HEARD MD 05/05/15 Primary Care Provider Petros Maurer Pending Labs Laboratory Tests Test 12/18/18 05:36 Sodium Level 139 mmol/L (135-144) Potassium Level 3.8 mmol/L (3.5-5.1) Chloride Level 101 mmol/L (97-110) Carbon Dioxide Level 27 mmol/L (21-31) Anion Gap 11 (5-13) Blood Urea Nitrogen < 2 mg/dl (7-20) Creatinine 0.44 mg/dl (0.44-1.00) Est Glomerular Filtrat Rate mL/min > 60 mL/min (>60) Glucose Level 90 mg/dl (70-220) Calcium Level 9.0 mg/dl (8.4-10.2) Total Bilirubin 0.4 mg/dl (0.2-1.3) Direct Bilirubin 0.00 mg/dl (0.00-0.20) Indirect Bilirubin 0.4 mg/dl (0-1.1) Aspartate Amino Transf (AST/SGOT) 74 IU/L (15-46) Alanine Aminotransferase (ALT/SGPT) 41 IU/L (13-69) Alkaline Phosphatase 76 IU/L (42-121) Total Protein 6.1 g/dl (6.1-8.1) Albumin 3.3 g/dl (3.3-4.9) Globulin 2.80 g/dl (1.3-3.2) Albumin/Globulin Ratio 1.17 Lipase 3342 U/L (23-300) DEREJE SUAREZ MD Dec 18, 2018 15:35
== END 2018-12-18 14:36 | disposition home or self-care (01) | DRG 439 ==
LOC: FTE 11:45 → PP2 17:44
PROVIDERS: ADMIT Internal Medicine; ATTEND Internal Medicine
DX: K85.20 Alcohol induced acute pancreatitis without necrosis or infection (principal); E87.2 Acidosis; K70.10 Alcoholic hepatitis without ascites; E87.6 Hypokalemia; F10.10 Alcohol abuse, uncomplicated
CPT/HCPCS: 36415; 74176; 76705; 80053; 80061; 81001; 81025; 83036; 83615; 83690; 83735; 84100; 85025; 85610; 85730; 86140; 86704; 86709; 86803; 87340; 96361; 96374; 96375; 96376; J1885; J2270; J2405; J3480; J7030